=== PATIENT | female | born 1985 ===

== ENCOUNTER 2021-01-18 16:24 | Emergency (ER) | payer SELFPAY ==
[~2021-01-18] VITALS: Ht 165.1 cm; Wt 90.7 kg
[2021-01-18 18:36] VITALS: BP 133/74
== END 2021-01-18 18:47 | disposition home or self-care (01) ==
LOC: ER 16:24
DX: S93.602A Unspecified sprain of left foot, initial encounter (principal); X50.0XXA Overexertion from strenuous movement or load, initial encounter; Y93.89 Activity, other specified; Y92.89 Other specified places as the place of occurrence of the external cause; Y99.8 Other external cause status
CPT/HCPCS: 73630